=== PATIENT | female | born 2000 | race Caucasian/White ===

== ENCOUNTER 2022-02-03 20:29 | Emergency (ER) | payer OTHER | END 2022-02-03 23:22 | disposition home or self-care (01) | LOC: JP.ED 20:29 | DX: R19.7 Diarrhea, unspecified (principal); Z20.822 Contact with and (suspected) exposure to COVID-19 | CPT/HCPCS: 36415; 80048; 81001; 85025; 87493; 99284; U0002 ==

== ENCOUNTER 2023-08-14 20:31 | Emergency (ER) | payer OTHER ==
[2023-08-14] MEDS: Lidocaine 1% 5 ML VIAL INJECT ONE (21:50)
== END 2023-08-14 22:35 | disposition home or self-care (01) ==
LOC: JP.ED 20:31
DX: L02.412 Cutaneous abscess of left axilla (principal); Z87.891 Personal history of nicotine dependence
CPT/HCPCS: 10060; 87070; 87077; 87186; 87205; 99283